=== PATIENT | male | born 1960 | race Caucasian/White ===

== ENCOUNTER 2020-11-12 10:51 | Inpatient (IN) | payer OTHER ==
[~2020-11-12] VITALS: Ht 165.1 cm; Wt 77.1 kg
[2020-11-12 11:02] VITALS: BP 150/88
[2020-11-12 14:38] LABS: ABSOLUTE BASOPHILS 0.1 thou/uL (0.0-0.2); ABSOLUTE LYMPHOCYTES 2.1 thou/uL (0.8-5.3); ABSOLUTE MONOCYTES 0.5 thou/uL (0.0-1.2); ABSOLUTE NEUTROPHILS 9.3 thou/uL (1.6-8.1); BASOPHILS 0.6 %; EOSINOPHILS 0.3 %; HEMATOCRIT 47.5 % (42.0-52.0); HEMOGLOBIN 16.6 gm/dL (14.0-18.0); LYMPHOCYTES 17.7 %; MCHC 35.1 g/dL (28.0-37.0); MCV 85.5 fL (80.0-100.0); MONOCYTES 4.1 %; MPV 8.2 fl. (7.2-11.1); NUCLEATED RBCS 0 /100WBC; PLATELET COUNT* 288 thou/uL (150-400); POLYS 77.3 %; RBC 5.55 mil/uL (4.50-6.00); RDW-CV 13.7 % (10.5-14.5)
[2020-11-12 14:45] LABS: CALCIUM 9.1 mg/dL (8.5-10.1); CREATININE 1.1 mg/dL (0.6-1.3); POTASSIUM 4.4 mmol/L (3.5-5.1)
[2020-11-12 14:49] LABS: MAGNESIUM 2.3 mg/dL (1.8-2.4); TOTAL PROTEIN 7.8 g/dL (6.4-8.2)
--- NOTE | 2020-11-12 16:36 | EKG ---
[place] [address] ELECTROCARDIOGRAM REPORT Name: ALICE CRESPO Room: [place] [address] [facility].#: [id number] Admission: 11/12/20 Attend Phys: Berta Ramos, Discharge: Date of : 58 Date of Service: 11/12/20 1058 Report #: [id number] THIS REPORT FOR: //name// [facility] ED Test Date: 2020-11-12 Test Time: 10:58:40 Pat Name: ALICE CRESPO Department: Room: [facility] Gender: M Pie [employer] Machine: VALERIE : 1960 Requested By: Abraham Trujillo Order Number: [id number] MD: Declan Rosado Measurements Intervals [place] Rate: 81 P: -14 MO: 150 QRS: -19 QRSD: 84 T: 168 QT: 426 QTc: 495 Interpretive Statements Sinus rhythm Ventricular premature complex Abnormal R-wave progression, late transition Inferior infarct, old Abnrm T, consider ischemia, anterolateral lds No previous ECG available for comparison Electronically Signed On 11-12-2020 16:36:26 CDT by Declan Rosado [email or web address] <ELECTRONICALLY SIGNED> By: Declan Rosado MD, FACC 11/12/20 1636 1058 1058 Declan Rosado MD, FAC /EPI
[2020-11-12 17:24] LABS: CHOLESTEROL 215 mg/dL (<200); HDL CHOLESTEROL 36 mg/dL (>40); LDL CHOLESTEROL 152 mg/dL (<100); SERUM ASSESSMENT Clear; TRIGLYCERIDE 139 mg/dL (<150); VLDL 28 mg/dL (<40)
[2020-11-12 18:40] VITALS: BP 180/95
[2020-11-13] VITALS (12 sets, daily range): BP systolic 117–156; BP diastolic 62–100
[2020-11-13 04:38] LABS: HEMATOCRIT 44.2 % (42.0-52.0); HEMOGLOBIN 15.7 gm/dL (14.0-18.0); MCH 30.6 pg (26.0-34.0); MCHC 35.5 g/dL (28.0-37.0); MCV 86.4 fL (80.0-100.0); MPV 8.4 fl. (7.2-11.1); RBC 5.11 mil/uL (4.50-6.00); RDW-CV 13.7 % (10.5-14.5); WBC 9.9 thou/uL (4.0-11.0)
[2020-11-13 04:55] LABS: ALBUMIN 3.8 g/dL (3.4-5.0); CALCIUM 8.7 mg/dL (8.5-10.1); CREATININE 1.2 mg/dL (0.6-1.3); MAGNESIUM 2.3 mg/dL (1.8-2.4); POTASSIUM 4.3 mmol/L (3.5-5.1); TOTAL BILIRUBIN 0.7 mg/dL (<0.1-1.0); TOTAL PROTEIN 7.3 g/dL (6.4-8.2)
--- NOTE | 2020-11-13 16:11 | 2DMMODE ---
[place] [address] 2 D/M-MODE ECHOCARDIOGRAM Name: ALICE CRESPO Room: [address] IN [facility]#: [id number] Admission: 11/12/20 Attend Phys: Berta Ramos, Discharge: Date of : 58 Date of Service: 11/13/20 1611 Report #: [id number] THIS REPORT FOR: cc: FAM - No family physician/PCP FAM - No family physician/PCP Matty Cruz MD [facility] ~ APPROVED REPORT Study performed: 11/13/2020 15:12:50 EXAM: Comprehensive 2D, Doppler, and color-flow Echocardiogram Patient Location: In-Patient Room #: 207 Status: routine BSA: 1.85 HR: 62 bpm BP: 152/80 mmHg Rhythm: NSR Other Information Study Quality: Good Indications Non STEMI 2D Dimensions IVSd: 12.98 (7-11mm) LVOT Diam: 19.89 (18-24mm) LVDd: 47.40 mm PWd: 14.23 (7-11mm) Ascending Ao: 32.37 (22-36mm) LVDs: 24.60 (25-40mm) Aortic Root: 34.23 mm Volumes Left Atrial Volume (Systole) LA ESV Index: 28.10 mL/m2 Aortic Valve AoV Peak Zana.: 1.36 m/s AO Peak Gr.: 7.36 mmHg LVOT Max P.93 mmHg AO Mean Gr.: 3.98 mmHg LVOT Mean P.65 mmHg LVOT Max V: 1.22 m/s AO V2 VTI: 25.50 cm LVOT Mean V: 0.75 m/s DELILAH (VTI): 3.02 cm2 LVOT V1 VTI: 24.78 [place] [address] 2 D/M-MODE ECHOCARDIOGRAM Name: ALICE CRESPO Room: [address] IN ..#: [id number] Admission: 11/12/20 Attend Phys: Berta Ramos, Discharge: Date of : 58 Date of Service: 11/13/20 1611 Report #: [id number] Mitral Valve E/A Ratio: 0.70 MV Decel. Time: 234.68 ms MV E Max Zana.: 0.81 m/s MV PHT: 68.06 ms MVA (PHT): 3.23 cm2 TDI E/Lateral E': 8.10 E/Medial E': 10.13 Medial E' Zana.: 0.08 m/s Lateral E' Zana.: 0.10 m/s Pulmonary Valve PV Peak Zana.: 0.86 m/s PV Peak Gr.: 2.93 mmHg Left Ventricle The left ventricle is normal size. There is normal LV segmental wall motion. Mild concentric left ventricular hypertrophy. Left ventricular systolic function is normal. LVEF is 65-70%. Grade I - abnormal relaxation pattern. Right Ventricle The right ventricle is normal size. The right ventricular systolic function is normal. Atria Left atrium is mildly dilated. The right atrium size is normal. Aortic Valve The aortic valve is normal in structure. Mild aortic regurgitation. There is no aortic valvular stenosis. Mitral Valve The mitral valve is normal in structure. Mild mitral regurgitation. No evidence of mitral valve stenosis. Tricuspid Valve The tricuspid valve is normal in structure. There is no tricuspid valve regurgitation noted. Pulmonic Valve The pulmonary valve is normal in structure. There is no pulmonic valvular regurgitation[place] [address] 2 D/M-MODE ECHOCARDIOGRAM Name: ALICE CRESPO Room: [address]#: [id number] Admission: 11/12/20 Attend Phys: Berta Ramos, Discharge: Date of : 58 Date of Service: 11/13/20 1611 Report #: [id number] The aortic root is normal in size. IVC is normal in size and collapses >50% with inspiration. Pericardium There is no pericardial effusion. <Conclusion> The left ventricle is normal size. Mild concentric left ventricular hypertrophy. Left ventricular systolic function is normal. LVEF is 65-70%. Grade I - abnormal relaxation pattern. There is normal LV segmental wall motion. Left atrium is mildly dilated. Mild aortic regurgitation. Mild mitral regurgitation. IVC is normal in size and collapses >50% with inspiration. <ELECTRONICALLY SIGNED> By: Matty Cruz MD, FACC 11/13/20 161 10 10 Matty Cruz MD, FACC /INF
[2020-11-14] VITALS: BP 112/52
[2020-11-14 04:13] VITALS: BP 127/82
[2020-11-14 08:00] VITALS: BP 141/81
[2020-11-14] MEDS ORDERED: BAYER CHEWABLE81 MG PO ×2 (08:27→09:13)
[2020-11-14] MEDS ORDERED: EFFIENT10 MG PO ×2 (08:27→09:13)
[2020-11-14] MEDS ORDERED: LIPITOR40 MG PO ×2 (08:27→09:13)
[2020-11-14] MEDS ORDERED: COZAAR 25 MG TA25 M2 PO ×2 (08:27→09:13)
[2020-11-14 08:56] LABS: HEMATOCRIT 45.3 % (42.0-52.0); MCH 30.3 pg (26.0-34.0); MCHC 35.3 g/dL (28.0-37.0); MCV 85.9 fL (80.0-100.0); MPV 8.1 fl. (7.2-11.1); RBC 5.27 mil/uL (4.50-6.00); RDW-CV 13.4 % (10.5-14.5); WBC 10.7 thou/uL (4.0-11.0)
[2020-11-14 09:12] LABS: CALCIUM 8.7 mg/dL (8.5-10.1); POTASSIUM 4.4 mmol/L (3.5-5.1); TROPONIN-I LEVEL 0.57 ng/mL (<0.06)
[2020-11-14 09:33] VITALS: BP 141/81
--- NOTE | 2020-11-14 14:36 | CARD ---
[address] [address] CARDIAC CATH REPORT Name: ZAKALICE Room: [address] IN [facility]#: [id number] Admission: 11/12/20 Attend Phys: Berta Ramos MD Discharge: 11/14/20 Date of : 58 Report #: [id number] THIS REPORT FOR: cc: FAM - No family physician/PCP FAM - No family physician/PCP Declan Rosado MD [facility] ~ APPROVED REPORT Study performed: 11/13/2020 13:02:55 Patient Details Patient Status: In-Patient Room #: 207 The patient is a 60 year-old male Event Personnel Sol Stone RTR Monitor, Zeferino Nieves RTR Scrub, Zeke Garcia RN RN, [facility] Medical Assistant, Declan Rosado Head Cook Procedures Performed Art Access - R femoral artery Left Heart Cath w/or w/o Coronaries NADYA Place w/wo Plasty Single LAD Hemostasis w/ Angioseal Indication Unstable angina Risk Factors Hypercholesterolemia, Hypertension Admission/Lab Medications/Medications given during procedure Lidocaine Subcut 14 ml, Oxygen Nasal cannula 2 l per min, 0.9% Sodium Chloride IV 75 ml per hr, Angiomax IV 11 ml, Angiomax Drip IV 26.95 ml per hr, Nitroglycerin IC 200 mcg, Aspirin PO 162 mg, Effient PO 60 mg Procedure Narrative The patient was brought urgently to the Cardiac Catheterization Laboratory and was prepped and draped in a sterile manner. The right femoral was infiltrated with 2% Lidocaine subcutaneous anesthesia. IV conscious sedation was used throughout procedure with appropriate monitoring and was performed in the presence of a registered nurse who was an independent trained observer other [place] [address] CARDIAC CATH REPORT Name: ALICE CRESPO Room: [address]#: [id number] Admission: 11/12/20 Attend Phys: Berta Ramos MD Discharge: 11/14/20 Date of : 58 Report #: [id number] performing the procedure. A Chandler 6 FR sheath was inserted into the right femoral artery. Coronary angiography was performed using coronary diagnostic catheters. The right coronary system was accessed and visualized with a Diagnostic 6 Fr JR 4 catheter. The left coronary system was accessed and visualized with a Diagnostic 6 Fr AL 1 catheter. The left ventricle was accessed and visualized with a Diagnostic 6 Fr Pigtail catheter. Left ventricular/Aortic Valve gradient assessed via catheter pullback. Left ventriculogram was performed in MCKEON projection. Pre-demployment femoral angiogram was performed . Closure device was deployed with a 6 Fr Angioseal 6 Fr. The patient tolerated the procedure well and there were no complications associated with the procedure. There was no hematoma. Intraoperative Conscious Sedation Sedation start time: 1358 Case end Time: 1429 Fentanyl 25 mcg Versed 1 mg Fluoro Time: 7.5 minutes Dose: DAP 83586 cGycm2 1278 mGy Contrast Type and Amount: Visipaque 230 ml Coronary Angiography The patient's coronary anatomy is co- dominant. Diagnostic Cath Left Main The left main is short and normal. LAD The proximal LAD is moderately 30% plaque. The mid LAD has a 99% occlusion. The distal vessel has diffuse plaquing up to 40%. Diagonal 1 A first diagonal branch is free of significant disease. Diagonal 2 A second diagonal branch has proximally 50% ostial narrowing. Circumflex The circumflex coronary artery is a large vessel that has 20% plaquing proximally. The mid vessel is mildly plaqued without hemodynamically significant stenosis. OM1 A small first obtuse marginal branch is free of significant disease. OM2 A large bifurcating second obtuse marginal branch appears normal. OM3 A moderate-sized third obtuse marginal branch is normal. L SREEKANTH A circumflex posterior lateral branch is normal. Right Coronary The right coronary artery is a small [place] [address] CARDIAC CATH REPORT Name: ALICE CRESPO Room: [address]#: [id number] Admission: 11/12/20 Attend Phys: Berta Ramos MD Discharge: 11/14/20 Date of : 58 Report #: [id number] that is free of significant disease. R PDA A small in size and caliber PDA is free of significant disease. Left Ventriculography The left ventricle is normal in size with normal contractility. The left ventricular ejection fraction is estimated to be 60-65%. Left ventricular wall motion abnormalities are not present. There is no mitral insufficiency. Hemodynamics The aortic pressure is 143/75 mmHg with a mean of 103 mmHg. The left ventricular pressure is 135/6 mmHg with a mean of mmHg. The left ventricular end diastolic pressure is 23 mmHg. There was no gradient across the aortic valve upon pullback. PCI Technique Lesion Anticoagulation was achieved with Angiomax Drip. Patient was preloaded with Angiomax IV 11 ml. Percutaneous coronary intervention was performed on the mid left anterior descending artery segment. The lesion stenosis prior to intervention was 99% with DAILY 3 flow. A 6F AL 1 Guide Catheter was used to engage the left ostium. A IG: BMW 190cm Interventional Guidewire was used to cross the lesion. BALLOON DILATION A Balloon catheter Trek RX 2.5 X 12 was inserted and inflated up to 8.00atm for 10seconds. Additional Inflation: 8.00atm for 7seconds. Additional Inflation: 14.00atm for 9seconds. STENT DEPLOYMENT A drug-eluting stent Fertile RX Stent [id number] was inserted and inflated up to 12.00atm for 7seconds. Additional Inflation: 14.00atm for 7seconds. Final angiography reveals 0 % stenosis with DAILY 3 flow. Conclusion 1. Significant single-vessel coronary artery disease as outlined above with critical stenosis in the mid left anterior descending coronary artery. 2. Normal left ventricular systolic function. 3. Elevated left ventricular end-diastolic pressure consistent with acute diastolic heart failure. 4. Successful PCI with deployment of a drug-eluting stent at site of [address] [place] [address] CARDIAC CATH REPORT Name: ALICE CRESPO Room: [address] IN [place].#: [id number] Admission: 11/12/20 Attend Phys: Berta Ramos MD Discharge: 11/14/20 Date of : 58 Report #: [id number] 99% mid LAD occlusion with 0% residual narrowing and DAILY-3 flow to the distal vessel Recommendations Cardiac Risk Reduction Program Aggressive Medical Therapy 1. Percutaneous coronary intervention to the mid LAD. 2. Continue aggressive risk factor modification. Medications Administered Aspirin (any) Prasugrel Diagnostic Cath Approved by: Matty Cruz MD Date/Time: 11/14/2020 14:35:12 <ELECTRONICALLY SIGNED> By: Declan Rosado MD, [facility] 11/14/20 1435 1435 1435Declan Rosado MD, FACC /INF
== END 2020-11-14 11:55 | disposition home or self-care (01) | DRG 247 ==
LOC: M.ERS 10:51 → M.TBA-ER 15:22 → M.2W 18:51
PROVIDERS: Emergency Medicine Emergency Medical Services; Registered Nurse; ADMIT Internal Medicine; ATTEND Internal Medicine
PROC: B215YZZ Fluoroscopy of Left Heart using Other Contrast (ICD-10-PCS; principal; 2020-11-13)
PROC: 027034Z Dilation of Coronary Artery, One Artery with Drug-eluting Intraluminal Device, Percutaneous Approach (ICD-10-PCS; principal; 2020-11-13)
PROC: 4A023N7 Measurement of Cardiac Sampling and Pressure, Left Heart, Percutaneous Approach (ICD-10-PCS; principal; 2020-11-13)
PROC: B41FYZZ Fluoroscopy of Right Lower Extremity Arteries using Other Contrast (ICD-10-PCS; principal; 2020-11-13)
PROC: B211YZZ Fluoroscopy of Multiple Coronary Arteries using Other Contrast (ICD-10-PCS; principal; 2020-11-13)
DX: I21.4 Non-ST elevation (NSTEMI) myocardial infarction (principal); I10 Essential (primary) hypertension; E78.5 Hyperlipidemia, unspecified; I25.10 Atherosclerotic heart disease of native coronary artery without angina pectoris; Z79.82 Long term (current) use of aspirin; Z82.49 Family history of ischemic heart disease and other diseases of the circulatory system; Z79.899 Other long term (current) drug therapy; Z20.822 Contact with and (suspected) exposure to COVID-19